=== PATIENT | female | born 1990 | race Caucasian/White ===

== ENCOUNTER 2016-07-24 10:32 | Emergency (ER) | payer OTHER ==
[2016-07-24 10:46] VITALS: BP 114/70
--- NOTE | 2016-07-24 11:32 | UC ---
Throat Pain/Nasal Daryn HPI - HPI Summary HPI Summary: 26 yo female with swollen gland lef post neck x days low grade temp and mild sore throat has had mono - History of Current Complaint Chief Complaint: UCGeneralIllness Stated Complaint: ABSCESS NECK Time Seen by Provider: 07/24/16 10:46 Hx Obtained From: Patient Hx Last Menstrual Period: 07/23/16 Onset/Duration: Gradual Onset, Lasting Days Severity: Moderate Pain Intensity: 4 Pain Scale Used: 0-10 Numeric Cough: None Associated Signs & Symptoms: Positive: Fever - carola - Allergies/Home Medications Allergies/Adverse Reactions: Allergies Allergy/AdvReac Type Severity Reaction Status Date / Time Lactose Intolerance (GI) AdvReac "My Verified 07/24/16 10:41 stomach gets upset." Home Medications: Home Medications [place] Carbonate TAB* 1,200 mg PO BEDTIME 07/24/16 [History Confirmed 07/24/16] QUEtiapine TAB* [SEROquel TAB*] 50 mg PO BEDTIME PRN 07/24/16 [History Confirmed 07/24/16] lamoTRIgine TAB(*) [LaMICtal TAB(*)] 50 mg PO BEDTIME 07/24/16 [History Confirmed 07/24/16] PMH/Surg Hx/FS Hx/Imm Hx Previously Healthy: Yes Endocrine History Of: Denies: Diabetes Cardiovascular History Of: Denies: Cardiac Disorders Respiratory History Of: Reports: Asthma - Surgical History Surgical History: None - Family History Known Family History: Positive: Unknown - adopted - Social History Alcohol Use: Weekly Substance Use Type: None Smoking Status (MU): Never Smoked Tobacco Review of Systems Constitutional: Fever - carola Skin: Negative Eyes: Negative ENT: Sore Throat - mild Respiratory: Negative Cardiovascular: Negative Gastrointestinal: Negative Genitourinary: Negative Motor: Negative Neurovascular: Negative Musculoskeletal: Myalgia Neurological: Negative Psychological: Negative All Other Systems Reviewed And Are Negative: Yes Physical Exam Triage Information Reviewed: Yes Appearance: Well-Appearing, No Pain Distress, Well-Nourished Vital Signs: Initial Vital Signs Temp 100.1 F 07/24/16 10:36 Pulse 88 07/24/16 10:36 Resp 16 07/24/16 10:36 BP 114/70 07/24/16 10:36 Pulse Ox 100 07/24/16 10:36 Eyes: Positive: Conjunctiva Clear ENT: Positive: Hearing grossly normal, Pharyngeal erythema, TMs normal. Negative: Nasal congestion, Nasal drainage, Tonsillar swelling, Tonsillar exudate, Trismus, Muffled/hoarse voice Neck: Positive: Supple, Enlarged Nodes @ - ant and posterior cervical adenopathy (tender) no supraclavicular adenopathy Respiratory: Positive: Lungs clear, Normal breath sounds, No respiratory distress, No accessory muscle use Cardiovascular: Positive: RRR, No Murmur, Pulses Normal Abdomen Description: Positive: Nontender, No Organomegaly, Soft. Negative: CVA Tenderness (R), CVA Tenderness (L), Hepatomegaly, Splenomegaly Musculoskeletal: Positive: ROM Intact, No Edema Neurological: Positive: Alert, Muscle Tone Normal Psychological Exam: Normal Skin Exam: Normal Throat Pain/Nasal Course/Dx - Course Course Of Treatment: RS (-) - Differential Dx/Diagnosis Provider Diagnoses: cervical lynphandenopathy. suspect viral illness Discharge - Discharge Plan Condition: Stable Disposition: HOME Prescriptions: Naproxen Sodium [Naproxen Sodium 500 MG TAB] 500 mg PO BID PRN #30 tab PRN Reason: Pain Patient Education Materials: Lymphadenopathy (ED) Referrals: Eugenie Judge MD [Primary Care Provider] - 2 Weeks Additional Instructions: heat may help I suggest you get your swollen glands rechecked in a few weeks to make sure they are better I suspect a viral illness is causing your symptoms
== END 2016-07-24 11:59 | disposition home or self-care (01) ==
LOC: UCCORT 10:32
DX: R59.0 Localized enlarged lymph nodes (principal)
CPT/HCPCS: 87651; 99212; G0463

== ENCOUNTER → 2016-07-26 10:54 | Emergency (ER) | payer OTHER ==
--- NOTE | 2016-07-26 15:22 | RAD ---
HISTORY: Left-sided neck pain and swelling COMPARISONS: None TECHNIQUE: Multiple transverse and longitudinal ultrasound images were obtained of the left neck using grayscale and color Doppler imaging. FINDINGS: LEVEL I: There is no lymphadenopathy by size criteria. LEVEL II: There are multiple subcentimeter short axis lymph nodes, including 2 ovoid areas measuring 0.8 cm in short axis without fatty narcisa LEVEL III: In the area of pain, there is an ovoid 0.7 cm short axis lymph node without fatty hilum. LEVEL IV: There is no lymphadenopathy by size criteria. LEVEL V: There is no lymphadenopathy by size criteria. LEVEL : There is no lymphadenopathy by size criteria. OTHER: None IMPRESSION: THE AREA OF PAIN CORRESPONDS TO MULTIPLE INDETERMINATE ANTERIOR CERVICAL CHAIN LYMPH NODES AT LEVEL 2 AND LEVEL 3 MEASURING UP TO 0.8 CM IN SHORT AXIS.
--- NOTE | 2016-07-26 15:29 | ED ---
Neck Pain - HPI Summary HPI Summary: Patient presents with one week of left neck lymph node swelling and pain that began without known illness. She was evaluated at [facility] 4 days ago and diagnosed with a viral illness. She presents today with continued pain and swelling and is worried something nefarious is occurring. She denies fever, chills, cough, ear ache, sore throat, headache, eye issues or congestion. - History of Current Complaint Chief Complaint: EDNeckComplaint Stated Complaint: NECK PAIN Hx Obtained From: Patient, Family/Stem Setter Hx Last Menstrual Period: 07/23/16 Onset/Duration Of Injury/Symptoms: Weeks Mechanism Of Injury: No Known Trauma Timing: Constant Onset/Duration: Still Present Severity Initially: Mild Severity Currently: Severe Pain Intensity: 8 Location: Discrete At: - left posterior cervical chain Character: Aching Aggravating Factors: Movement Alleviating Factors: Nothing Associated Signs & Symptoms: Positive: Swelling - Allergies/Home Medications Allergies/Adverse Reactions: Allergies Allergy/AdvReac Type Severity Reaction Status Date / Time Lactose Intolerance (GI) AdvReac "My Verified 07/24/16 10:41 stomach gets upset." PMH/Surg Hx/FS Hx/Imm Hx Endocrine/Hematology History: Denies: Hx Diabetes Respiratory History: Reports: Hx Asthma Infectious Disease History: Denies: Traveled Outside the [place] in Last 30 Days - Family History Known Family History: Positive: Unknown - adopted - Social History Occupation: Employed Full-time Lives: With Family Alcohol Use: Weekly Substance Use Type: Reports: None Smoking Status (MU): Never Smoked Tobacco Review of Systems Negative: Fever, Chills Negative: Sore Throat, Ear Ache Positive: Myalgia All Other Systems Reviewed And Are Negative: Yes Physical Exam Triage Information Reviewed: Yes Vital Signs On Initial Exam: Initial Vitals Temp Pulse Resp BP Pulse Ox 99.4 F 88 18 142/83 100 07/26/16 10:57 07/26/16 10:57 07/26/16 10:57 07/26/16 10:57 07/26/16 10:57 Vital Signs Reviewed: Yes Appearance: Positive: Well-Appearing, No Pain Distress, Well-Nourished Skin: Positive: Warm, Skin Color Reflects Adequate Perfusion, Dry, Soft Head/Face: Positive: Normal Head/Face Inspection Eyes: Positive: EOMI, VELMA, Conjunctiva Clear ENT: Positive: Hearing grossly normal, Pharynx normal, TMs normal Neck: Positive: Supple, Tenderness @ - left posterior cervical chain, Enlarged Nodes @ Respiratory/Lung Sounds: Positive: Clear to Auscultation, Breath Sounds Present Cardiovascular: Positive: RRR Musculoskeletal: Negative: Edema Left, Edema Right Neurological: Positive: Sensory/Motor Intact, Alert, Oriented to Person Place, Time, [place] Bundle Intact Distally, Normal Gait Psychiatric: Positive: Affect/Mood Appropriate AVPU Assessment: Alert Diagnostics - Vital Signs Vital Signs Temp Pulse Resp BP Pulse Ox 07/26/16 13:47 98.9 F 76 16 108/67 95 07/26/16 12:37 74 18 114/65 100 07/26/16 10:57 99.4 F 88 18 142/83 100 - Laboratory Lab Statement: Any lab studies that have been ordered have been reviewed, and results considered in the medical decision making process. - Ultrasound No standard instances Ultrasound Interpretation: No Acute Changes Ultrasound Interpretation Completed By: Radiologist Neck Course/Dx - Diagnoses Differential Dx/HQI/PQRI: Positive: Adenitis, Dystonia, Meningitis, Sprain, Strain, Torticollis, Trauma Provider Diagnoses: Lymphadenopathy Discharge - Discharge Plan Condition: Stable Disposition: HOME Patient Education Materials: Lymphadenopathy (ED) Referrals: Eugenie Judge MD [Primary Care Provider] - Additional Instructions: Please continue to use Naproxen for pain and follow-up with your primary care provider if symptoms do not begin to improve in the next 5-7 days.
[2016-07-26 15:43] VITALS: BP 110/60
== END | disposition home or self-care (01) ==
LOC: ED 10:54
DX: R59.1 Generalized enlarged lymph nodes (principal)
CPT/HCPCS: 76536; 99281